=== PATIENT | male | born 1970 | race Two or more races ===

== ENCOUNTER 2022-03-22 07:37 | Outpatient (CLI) | payer OTHER | END 2022-03-22 07:38 | disposition home or self-care (01) | LOC: LAB 07:37 | PROVIDERS: ATTEND Pediatrics | DX: E55.9 Vitamin D deficiency, unspecified (principal); Z00.00 Encounter for general adult medical examination without abnormal findings; R06.5 Mouth breathing ==

== ENCOUNTER 2022-03-22 08:04 | Outpatient (CLI) | payer OTHER | END 2022-03-22 08:05 | disposition home or self-care (01) | LOC: RAD 08:04 | PROVIDERS: ATTEND Pediatrics | DX: M54.2 Cervicalgia (principal); Z00.00 Encounter for general adult medical examination without abnormal findings; R06.5 Mouth breathing ==